=== PATIENT | female | born 1955 | race Caucasian/White ===

== ENCOUNTER → 2017-01-21 | Outpatient (CLI) | payer BC ==
[~2017-01-21] MED LIST: IBUPROFEN PO; KEFLEX PO; LORTAB 7.5-5001 TAB PO; NO MEDICATIONS; PHENTERMINE PO
--- NOTE | ~2017-01-21 | US85 ---
[facility]. [facility] A Service of [facility] / [facility] RADIOLOGY TEXT RESULTS PATIENT: CHENCHO HUERTA LOCATION: SNIV : 59 UNIT #: [id number] AGE: [address]: Seth Oscar MD SEX: F ORDER DR: [id number] [address] [address] [id number] O MR#: [id number] Acc #: [id number] NAME: CHENCHO HUERTA : 1955 SEX: F STUDY DATE/TIME: 01/21/2017 11:18 UNIT: SNIV ROOM: STUDY DESCRIPTION: [facility]at or [facility] Attending Physician: Seth Oscar M.D. Referring Physician: Seth Oscar M.D. Ordering Physician: Seth Oscar M.D. Primary Care Physician: Seth Oscar M.D. MEDICAL IMAGING REPORT This report is preliminary unless electronic signature is present. EXAM Right lower extremity venous duplex 01/21/2017 HISTORY Right ankle swelling for 2 weeks. Evaluate for deep vein thrombosis. TECHNIQUE Venous ultrasound examination of the right lower extremity was performed using grayscale, spectral Doppler and color flow Doppler imaging. FINDINGS The examination is negative. There is no evidence of right lower extremity deep venous thrombus from the groin to the lower calf. Visualized greater saphenous vein is also patent. IMPRESSION Negative examination. No evidence of right lower extremity deep venous thrombosis. Dictated by... Piero Fernandes M.D. THIS IS AN ELECTRONICALLY VERIFIED REPORT Piero Fernandes M.D. at 01/22/2017 7:46 AM CEASAR/jose TD: 01/21/2017 15:37 JOB #: [id number] MEDICAL IMAGING REPORT Page 1 of 1
== END | disposition home or self-care (01) ==
LOC: SNIV 10:29
DX: M79.89 Other specified soft tissue disorders (principal)
CPT/HCPCS: 93971

== ENCOUNTER → 2017-07-05 | Day surgery (SDC) | payer BC ==
--- NOTE | ~2017-07-05 | OR ---
Unit #: [id number] #: [id number] Patient: CHENCHO HUERTA [id number] [address] [address] [id number] O MR#: [id number] NAME: CHENCHO HUERTA. ROOM: Date of Procedure: 07/05/2017 Admission Date: 07/05/2017 Surgeon: Johnson Momin M.D. : 1955 Attending Physician: Johnson Momin M.D. Primary Care Physician: Seth Oscar M.D. OPERATIVE REPORT PREOPERATIVE DIAGNOSES Colorectal cancer screening. The patient had a history of colon polyps in the past. PROCEDURES PERFORMED Colonoscopy and polypectomy. POSTOPERATIVE DIAGNOSES 1. Two sessile polyps noted one each in the transverse colon and sigmoid colon. These were 8 mm and 5 mm each respectively, both were removed using snare polypectomy. 2. Mild sigmoid and descending colon diverticulosis. 3. Rest of the examination up to cecum and terminal ileum was normal. The quality of the prep was excellent. RECOMMENDATIONS 1. Follow up the results of polyp histology. 2. Consider repeat colonoscopy in 5 years. SEDATION USED MAC. DESCRIPTION OF PROCEDURE Following detailed explanation of the potential risks and complications of a colonoscopy, namely perforation, bleeding, and complications related to sedation, the patient was brought to GI lab and laid in the left lateral decubitus position. A digital rectal examination was performed, which was normal. Lubricated tip of the Olympus video colonoscope was inserted through the anus and advanced under direct vision. The scope was advanced past rectosigmoid into descending colon. Multiple small diverticula were noted in this area. The scope tip was then navigated all the way up to cecum with visualization of the ileocecal valve and the appendiceal orifice. Preparation was excellent with good visualization and photodocumentation was obtained. Last few inches of terminal ileum were also visualized after intubation of the ileocecal valve and appeared normal. Successive segments of the colonic mucosa were examined upon withdrawal. Two polyps noted, one each in the transverse colon and sigmoid colon. These were 8 mm and 5 mm respectively. Both were removed using snare polypectomy. They were retrieved and sent for histology. No additional polyps were noted. Other than the left-sided diverticula, no other abnormalities were noted. The patient did not have any hemorrhoids at anal verge. The scope was then withdrawn and the patient returned to Unit #: [id number] #: [id number] Patient: CHENCHO HUERTA the recovery area. He tolerated the procedure without any postprocedure complications. Dictated by... Seth Cabrera/pavithra TD: 07/05/2017 18:26 JOB #: [id number] CC: Seth Oscar M.D. OPERATIVE REPORT Page 1 of 1 X Johnson Momin MD X PROCEDURE OPERATIVE NOTE
== END | disposition home or self-care (01) ==
LOC: COPS 14:01
DX: Z12.11 Encounter for screening for malignant neoplasm of colon (principal); D12.3 Benign neoplasm of transverse colon; D12.5 Benign neoplasm of sigmoid colon; K57.30 Diverticulosis of large intestine without perforation or abscess without bleeding; Z87.891 Personal history of nicotine dependence; Z87.01 Personal history of pneumonia (recurrent); Z87.09 Personal history of other diseases of the respiratory system; Z98.890 Other specified postprocedural states; Z88.5 Allergy status to narcotic agent; Z90.711 Acquired absence of uterus with remaining cervical stump
CPT/HCPCS: 88305